=== PATIENT | male | born 1980 | race Caucasian/White ===

== ENCOUNTER 2020-01-19 20:35 | Emergency (ER) | payer BC ==
[2020-01-19] MEDS ORDERED: HYDROCODONE/ACETAMINOPHEN 5-325 MG TABLET PO ONE (20:57)
--- NOTE | 2020-01-19 21:30 | ER Document Report ---
HPI - HPI Patient complains to provider of: left ankle injury Time Seen by Provider: 01/19/20 20:54 Context: 39-year-old male with no previous medical problems presents to the emergency room complaining of left ankle pain. Patient states he missed a step walking into his garage twisting his ankle and falling. States he heard a "pop". Did not sustain any other injuries when he fell. History of a previous fracture more than 20 years ago. States is able to walk but is painful. Associated Symptoms: None Exacerbated by: Walking Relieved by: Remaining still Similar symptoms previously: No Recently seen / treated by doctor: No - ROS Systems Reviewed and Negative: Yes All other systems reviewed and negative - NEURO Neurology: DENIES: Weakness - MUSCULOSKELETAL Musculoskeletal: REPORTS: Extremity pain - DERM Skin Color: Normal, [place] Skin Problems: None Past Medical History - General Information source: Patient - Social History Smoking Status: Never Smoker Frequency of alcohol use: Rare Drug Abuse: None Family History: Reviewed & Not Pertinent Vertical Provider Document - CONSTITUTIONAL Agree With Documented VS: Yes Exam Limitations: No Limitations General Appearance: Mild Distress - INFECTION CONTROL TRAVEL OUTSIDE OF THE [place] IN LAST 30 DAYS: No - HEENT HEENT: Atraumatic, Normocephalic - NECK Neck: Normal Inspection, Supple, Thyroid Normal - RESPIRATORY Respiratory: Breath Sounds Normal, No Respiratory Distress, Chest Non-Tender - CARDIOVASCULAR Cardiovascular: Regular Rate, Regular Rhythm, No Murmur - BACK Back: Normal Inspection - MUSCULOSKELETAL/EXTREMETIES Musculoskeletal/Extremeties: Tender - Tenderness with swelling noted with palpation over the left lateral malleus. Painful range of motion with eversion and inversion to the left ankle. Nontender with flexion and extension. No obvious deformity noted. - NEURO Level of Consciousness: Awake, Alert, Appropriate Motor/Sensory: No Motor Deficit, No Sensory Deficit Notes: Gait not tested secondary to pain. Positive left pedal pulse. Capillary refill less than 3 seconds. - DERM Integumentary: Warm, Dry, No Rash Course - Re-evaluation Re-evalutation: 01/19/20 21:58 Discussed patient's elevated blood pressure. Patient does not have a history of hypertension. Slight improvement with blood pressure after pain medication was given. Recommend that he follow-up outpatient with his primary care physician for blood pressure check. Patient is resting comfortably with decreased pain. He is ambulatory with limping noted to the left leg. Aircast applied by nursing staff as documented. Counseled to rest, ice, elevate 20 minutes 3 times a day. Tylenol and/or Motrin as needed for pain. Outpatient follow-up with orthopedics if not improving in 2 to 3 days. On-call physician was provided. Patient was isidro guillen strict return to the emergency room guidelines. Return for any new or worsening symptoms. All questions were answered. Patient verbalized understanding and agrees with plan of care. 01/19/20 22:11 01/19/20 22:18 - Vital Signs Vital signs: Temp Pulse Resp BP Pulse Ox 98.9 F 100 22 H 153/95 H 96 01/19/20 20:45 01/19/20 20:45 01/19/20 20:45 01/19/20 20:45 01/19/20 20:45 - Diagnostic Test Radiology reviewed: Reports reviewed Procedures - Immobilization Left Ankle Time completed: 21:59 Pre-Proc Neuro Vasc Exam: Normal Immobilizer type: Ankle stirrup Performed by: PCT Post-Proc Neuro Vasc Exam: Normal Alignment checked and good: Yes Discharge - Discharge Clinical Impression: Elevated blood pressure reading without diagnosis of hypertension Left ankle sprain Qualifiers: Encounter type: initial encounter Involved ligament of ankle: unspecified ligament Qualified Code(s): S93.402A - Sprain of unspecified ligament of left ankle, initial encounter Condition: Stable Disposition: HOME, SELF-CARE Instructions: High Blood Pressure ([facility]), Sprained Ankle ([facility]) Additional Instructions: Outpatient follow-up with your primary care physician for reevaluation of your elevated blood pressure. Rest, ice, elevate your left ankle 20 minutes 3 times a day. Tylenol and or Motrin as needed for pain. Outpatient follow-up with orthopedics if not improving in 2 to 3 days. Weightbearing as tolerated. Return to the emergency room for any new or worsening symptoms. Referrals: KENNEDI GAO JR, DO [ACTIVE PROVISIONAL STAFF] - Follow up as needed
--- NOTE | 2020-01-19 21:50 | RADIOLOGY REPORT (SQ) ---
EXAM DESCRIPTION: XR ANKLE 3 OR MORE VIEWS COMPLETED DATE/TME: 01/19/2020 21:13 CLINICAL HISTORY: 39 years, Male, injury COMPARISON: None. NUMBER OF VIEWS: 3 TECHNIQUE: 3 views of the left ankle were obtained LIMITATIONS: None. FINDINGS: There is no fracture or dislocation. There is a 3 mm plantar spur. No significant joint space narrowing is seen. IMPRESSION: Small plantar spur. No acute abnormality is seen. copyright 2010 [employer]- All Rights Reserved
[2020-01-19 22:17] VITALS: BP 149/99
--- OUTSIDE RECORDS SUMMARY | 2020-01-21 14:47 | XMS REPORT ---
:1980 Author [facility] Address [facility] [address] [place] [id number] Care Team Providers Name Role Phone Town, of Primary Care Physician Unavailable Linh Attending Clinician Unavailable Andrea Alvares Attending Clinician Unavailable Allergies, Adverse Reactions, Alerts Allergy Allergy Status Severity Reaction(s) Onset Inactive Treating C omments Name Type Date Date Clinician Codeine Allergy to Active substance Medications Ordered Filled Start Stop Current Ordering Indication Dosage Frequency Signature Comments Components Medication Medication Date Date Medication? Clinician (SIG) Name Name Miralax 17 No 17g Q1D Miralax 17 gram/dose gram/dose oral powder oral Take 17 g powder every day Take 17 g by oral every day route for 5 by oral days. route for 5 days. Problems This patient has no known problems. Procedures Procedure Date / Time Performed Performing Clinician Vivian edmond pulse oximetry (PROC) 2019-11-30 00:00:00 DRUG SCREEN, SINGLE [CPT-4:43060] 2017-10-13 00:00:00 Tonsillectomy Results Test Description Test Time Test Comments Text Results Atomic Results Result Comments Lipid 1996 panel - Serum or Plasma 2019-11-25 00:00:00 Test Item Value Reference Range Comments Cholesterol [Mass/volume] in Serum or Plasma (test code 200 mg/d L <200 = 2093-3) Cholesterol in HDL [Mass/volume] in Serum or Plasma 34 mg/dL > or = 40 (test code = 2085-9) Triglyceride [Mass/volume] in Serum or Plasma (test code 140 mg/ dL <150 = 2571-8) Cholesterol in LDL [Mass/volume] in Serum or Plasma by 140 mg/dL (calc) calculation (test code = 82808-0) Cholesterol.total/Cholesterol.in HDL [Mass ratio] in 5.9 (calc) <5.0 Serum or Plasma (test code = 9830-1) Cholesterol non HDL [Mass/volume] in Serum or Plasma 166 mg/dL ( calc) <130 (test code = 80830-8) Comprehensive metabolic 2000 panel - Serum or [id number] 00:00:00 Test Item Value Reference Range Comments Glucose [Mass/volume] in Serum or Plasma 99 mg/dL 65-99 (test code = 2345-7) Urea nitrogen [Mass/volume] in Serum or 10 mg/dL 7-25 Plasma (test code = 3094-0) Creatinine [Mass/volume] in Serum or 1.00 mg/dL 0.60-1.35 Plasma (test code = 2160-0) Glomerular filtration rate/1.73 sq 95 mL/min/1.73m2 > or = 60 M.predicted [Volume Rate/Area] in Serum, Plasma or Blood by Creatinine-based formula (MDRD) (test code = 38931-8) Glomerular filtration rate/1.73 sq 110 mL/min/1.73m2 > or = 60 M.predicted among blacks [Volume Rate/Area] in Serum, Plasma or Blood by Creatinine-based formula (MDRD) (test code = 16876-6) Urea nitrogen/Creatinine [Mass Ratio] in not applicable 6-22 Serum or Plasma (test code = 3097-3) Sodium [Moles/volume] in Serum or Plasma 140 mmol/L 135-146 (test code = 2951-2) Potassium [Moles/volume] in Serum or 4.4 mmol/L 3.5-5.3 Plasma (test code = 2823-3) Chloride [Moles/volume] in Serum or Plasma 103 mmol/L 98-11 0 (test code = 2075-0) Carbon dioxide, total [Moles/volume] in 29 mmol/L 20-32 Serum or Plasma (test code = 2028-9) Calcium [Mass/volume] in Serum or Plasma 9.6 mg/dL 8.6-10. 3 (test code = 63690-3) Protein [Mass/volume] in Serum or Plasma 7.2 g/dL 6.1-8.1 (test code = 2885-2) Albumin [Mass/volume] in Serum or Plasma 4.4 g/dL 3.6-5.1 (test code = 1751-7) Globulin [Mass/volume] in Serum by 2.8 g/dL (calc) 1.9-3.7 calculation (test code = 49102-8) Albumin/Globulin [Mass Ratio] in Serum or 1.6 (calc) 1.0-2. 5 Plasma (test code = 1759-0) Bilirubin.total [Mass/volume] in Serum or 0.6 mg/dL 0.2-1. 2 Plasma (test code = 1975-2) Alkaline phosphatase [Enzymatic 48 U/L 36-130 activity/volume] in Serum or Plasma (test code = 6768-6) Aspartate aminotransferase [Enzymatic 23 U/L 10-40 activity/volume] in Serum or Plasma (test code = 1920-8) Alanine aminotransferase [Enzymatic 40 U/L 9-46 activity/volume] in Serum or Plasma (test code = 1742-6) CBC W Auto Differential panel - [id number] 00:00:00 Test Item Value Reference Range Comments Leukocytes [#/volume] in Blood by Automated 9.3 thousand/uL 3.8- 10.8 count (test code = 6690-2) Erythrocytes [#/volume] in Blood by 5.68 million/uL 4.20-5.80 Automated count (test code = 789-8) Hemoglobin [Mass/volume] in Blood (test code 16.3 g/dL 13. 2-17.1 = 718-7) Hematocrit [Volume Fraction] of Blood by 48.6 % 38.5-50 .0 Automated count (test code = 4544-3) Erythrocyte mean corpuscular volume [Entitic 85.6 fL 80. 0-100.0 volume] by Automated count (test code = 787-2) Erythrocyte mean corpuscular hemoglobin 28.7 pg 27.0-33. 0 [Entitic mass] by Automated count (test code = 785-6) Erythrocyte mean corpuscular hemoglobin 33.5 g/dL 32.0-36. 0 concentration [Mass/volume] by Automated count (test code = 786-4) Erythrocyte distribution width [Ratio] by 14.0 % 11.0-1 5.0 Automated count (test code = 788-0) Platelets [#/volume] in Blood by Automated 300 thousand/uL 140-4 00 count (test code = 777-3) Platelet mean volume [Entitic volume] in 11.0 fL 7.5-12. 5 Blood by [place]row (test code = 776-5) Neutrophils [#/volume] in Blood by Automated 5599 cells/uL 150 0-7800 count (test code = 751-8) Lymphocytes [#/volume] in Blood by Automated 2651 cells/uL 850 -3900 count (test code = 731-0) Monocytes [#/volume] in Blood by Automated 688 cells/uL 200-9 50 count (test code = 742-7) Eosinophils [#/volume] in Blood by Automated 270 cells/uL 15- 500 count (test code = 711-2) Basophils [#/volume] in Blood by Automated 93 cells/uL 0-200 count (test code = 704-7) Neutrophils/100 leukocytes in Blood by 60.2 % Automated count (test code = 770-8) Lymphocytes/100 leukocytes in Blood by 28.5 % Automated count (test code = 736-9) Monocytes/100 leukocytes in Blood by 7.4 % Automated count (test code = 5905-5) Eosinophils/100 leukocytes in Blood by 2.9 % Automated count (test code = 713-8) Basophils/100 leukocytes in Blood by 1.0 % Automated count (test code = 706-2) Thyrotropin [Units/volume] in Serum or [id number] 00:00:00 Test Item Value Reference Range Comments Thyrotropin [Units/volume] in Serum or Plasma 1.63 mIU/L 0. 40-4.50 (test code = 3016-3) Hemoglobin A1c/Hemoglobin.total in [id number] 00:00:00 Test Item Value Reference Range Comments Hemoglobin A1c/Hemoglobin.total in Blood 5.6 % of total HGB <5.7 (test code = 4548-4) Glucose mean value [Mass/volume] in Blood 114 (calc) Estimated from glycated hemoglobin (test code = 49770-8) Glucose mean value [Moles/volume] in 6.3 (calc) Blood Estimated from glycated hemoglobin (test code = 32345-8) Helicobacter pylori Ab [Units/volume] in [id number] 11:52:00 Test Item Value Reference Range Comments H. pylori (test code = H. pylori) negative Assessments Condition Name Status Diagnosis Date Treating Clinici an Nicotine dependence Active 2019-12-09 20:40:26 Body mass index 40+ - severely obese Active 2019-12-09 20:40:26 Morbid obesity Active 2019-12-09 20:40:26 Abdominal pain Active 2019-12-09 20:40:26 Constipation Active 2019-12-09 20:40:26 Family history of diabetes mellitus Active 2019-12-09 2 0:40:26 Family history of Cardiovascular Active 2019-12-09 20:4 0:26 disease Elevated blood-pressure reading without Active 20:40:26 diagnosis of hypertension Environmental allergy Active 2019-12-09 20:40:26 Anxiety Active 2019-12-09 20:40:26 Constipation Active 2019-11-24 10:46:44 Family history of diabetes mellitus Active 2019-11-24 1 0:50:35 Family history of Cardiovascular Active 2019-11-24 10:5 0:44 disease Hyperlipidemia screening Active 2019-11-24 10:51:09 Endocrine/metabolic screening Active 2019-11-24 10:51:1 3 Elevated blood-pressure reading without Active 10:56:59 diagnosis of hypertension Environmental allergy Active 2019-11-24 19:15:28 Anxiety Active 2019-11-24 19:15:44 Nicotine dependence Active 2019-11-24 10:40:46 Body mass index 40+ - severely obese Active 2019-11-24 10:41:24 Morbid obesity Active 2019-11-24 10:41:30 Abdominal pain Active 2019-11-24 10:41:34 Encounters Start End Encounter Admission Attending Care Care Encounter ID Date/Time Date/Time Type Type Clinicians Facility Department 2019-11-30 2019-11-30 [facility] [id number] 00:00:00 00:00:00 Redinger, [facility]mediate [facility] & [facility] PA-C: [address] [place] [address], Ph. 2019-11-24 2019-11-24 [facility] [id number] 00:00:00 00:00:00 Redinger, Immediate [facility]mediate & 916 PA-C: [address] [place] [address], Ph. 2018-04-27 2018-04-27 Emergency EM LAMONTE Melton [id number] 12:17:00 16:31:00 Valentin 2018-02-05 2018-02-05 Emergency EM LAMONTE Alvares [id number] 09:55:00 11:30:00 Jose 2017-12-01 2017-12-01 Outpatient EMC1 [id number] 00:00:00 00:00:00 2017-10-13 2017-10-13 Outpatient R EMC1 [id number] 15:00:00 15:00:00 Payers Payer Name Policy Type Policy Number Effective Date Expiration D ate [employer] [id number] 2018 00:00:00 SP [employer] COMM Corporate Account 9231 2017 00:00:00 Plan of Treatment Planned Activity Planned Date Details Comments Future Appointment 2020-05-23 16:00:00 Saima Mcdonnell, Jarrod Owen; , [place] [address] Future Appointment 2020-05-16 08:30:00 Nurse, Jarrod Owen ; [place] [address] Social History Smoking Status Start Date Stop Date Never Smoker Vital Signs Vital Name Observation Time Observation Value Comments BP Diastolic 2019-11-30 00:00:00 94 mm[Hg] Height 2019-11-30 00:00:00 72 [in_i] BMI (Body Mass Index) 2019-11-30 00:00:00 44.5 kg/m2 BP Systolic 2019-11-30 00:00:00 139 mm[Hg] Body Weight 2019-11-30 00:00:00 328 [lb_av] Hospital Discharge Instructions Clinical Instructions/Patient Decision Aids None 12/01/2017 --
== END 2020-01-19 22:20 | disposition home or self-care (01) ==
LOC: ER 20:35
PROC: 2W3RX1Z Immobilization of Left Lower Leg using Splint (ICD-10-PCS; principal; 2020-01-19)
DX: S93.402A Sprain of unspecified ligament of left ankle, initial encounter (principal); M25.572 Pain in left ankle and joints of left foot; M79.89 Other specified soft tissue disorders; X50.1XXA Overexertion from prolonged static or awkward postures, initial encounter
CPT/HCPCS: 99283